=== PATIENT | male | born 1965 ===

== ENCOUNTER 2021-02-14 03:29 | Emergency (ER) | payer OTHER ==
[~2021-02-14] VITALS: Ht 193 cm; Wt 131.5 kg
[2021-02-14 05:39] LABS: Basophils # (auto) 0 10 ^3/uL (0-0.2); Basophils % (auto) 0.5 % (0.0-2.0); Eosinophils # (auto) 0 10 ^3/uL (0-0.8); Eosinophils % (auto) 0.2 % (0.0-7.0); Hematocrit 40.6 % (41.0-53.0); Hemoglobin 14.7 g/dL (13.5-17.5); Lymphocytes # (auto) 0.5 10 ^3/uL (0.4-5.4); Lymphocytes % (auto) 7.8 % (10.0-50.0); Mean Corpuscular Hgb Conc. 36.2 g/dL (32.0-36.0); Mean Corpuscular Volume 77.6 fL (80.0-100.0); Monocytes # (auto) 0.4 10 ^3/uL (0-1.3); Monocytes % (auto) 6.4 % (0.0-12.0); Neutrophils # (auto) 5.9 10 ^3/uL (1.6-8.6); Neutrophils % (auto) 85.1 % (37.0-80.0); Nucleated Red Blood Cells % 0.1 %; Red Blood Cells 5.23 10^6/uL (4.5-5.90); Red Cell Distribution Width 12.9 % (11.8-14.3); White Blood Cell 6.9 10^3/uL (4.4-10.8)
[2021-02-14 05:57] LABS: Albumin 2.6 g/dL (3.4-5.0); Anion Gap 10 (5-15); Blood Urea Nitrogen 15 mg/dL (7-18); Calcium 8.6 mg/dL (8.5-10.1); Carbon Dioxide 28 mmol/L (21-32); Chloride 90 mmol/L (98-107); Glucose 281 mg/dL (74-106); Sodium 128 mmol/L (136-145)
[2021-02-14 05:59] LABS: Alanine Aminotransferase 19 U/L (16-61); Aspartate Aminotransferase 22 U/L (15-37); GFR African American 92 mL/min; GFR Non-African American 76 mL/min
[2021-02-14 06:04] LABS: Alkaline Phosphatase 56 U/L (45-117); Bilirubin, Total 0.7 mg/dL (0.2-1.0); Total Protein 7.5 g/dL (6.4-8.2)
[2021-02-14 06:25] LABS: Potassium 2.7 mmol/L (3.5-5.1)
[2021-02-14] MEDS ORDERED: POTASSIUM CHL 20 Meq TABLET PO ONE (06:30)
[2021-02-14] MEDS: POTASSIUM CHL 20MEQ/100ML 100 ML IV SCH ×2 (07:03→09:12)
[2021-02-14] MEDS ORDERED: DexAMETHasone SOD PHOS 10MG/1ML VIAL INJ IV ONE (09:30)
[2021-02-14] MEDS ORDERED: ZINC SULFATE 220mg CAP or TAB PO ONE (09:30)
[2021-02-14] MEDS ORDERED: cefTRIAXone 1GM/50ML D5W 50 ML IV ONE (09:30)
[2021-02-14 20:54] VITALS: BP 151/85
== END 2021-02-14 21:05 | disposition short-term general hospital (02) ==
LOC: ER 03:29
DX: U07.1 COVID-19 (principal); E87.6 Hypokalemia; E11.9 Type 2 diabetes mellitus without complications; I10 Essential (primary) hypertension
CPT/HCPCS: 36415; 71045; 80053; 83735; 83880; 84484; 85025; 87426; 96365; 96366; 96368; 96375; 99285; C9803; J0696; J1100; J3480; U0003